=== PATIENT | male | born 1955 | race Caucasian/White ===

== ENCOUNTER → 2023-04-08 10:28 | Outpatient (CLI) | payer MEDICARE, OTHER, SELFPAY ==
--- NOTE | 2023-04-08 10:30 | DI.RAD.S_ITS ---
PROCEDURE: XR LUMBAR SPINE MIN 4V INDICATIONS: LOW BACK PAIN TECHNIQUE: 5 views of the lumbar spine were acquired, including bilateral oblique views. COMPARISON: None. FINDINGS: Bones: 5 nonrib-bearing vertebrae are present. Minimal levocurvature of the lumbar spine. Grade 1 retrolisthesis of L2 on L3 and L3 on L4. There is 9 millimeters of anterolisthesis of L4 on L5. There is multilevel facet arthropathy, worse at L4-5 and L5-S1. Mild multilevel disc height loss with degenerative endplate changes and spurring is present. This is most pronounced at L4-5. No vertebral body compression fractures. No suspicious bony lesions. Soft tissues: Overlying bowel gas pattern is normal. No suspicious soft tissue calcifications. Atherosclerotic vascular calcifications. Oblique images: No definite pars defects. IMPRESSION: Multilevel degenerative changes of the lumbar spine with spondylolisthesis as described above. No definite pars interarticularis defects are seen radiographically. Dictated by: Daljit Saleem M.D. on 04/08/2023 at 11:54 Approved by: Daljit Saleem M.D. on 04/08/2023 at 11:56
== END ==
PROVIDERS: PCP Nurse Practitioner Family; Referring Provider Anesthesiology; Visit Provider Anesthesiology
DX: M54.50 Low back pain, unspecified (principal); M43.16 Spondylolisthesis, lumbar region; M47.816 Spondylosis without myelopathy or radiculopathy, lumbar region; M48.062 Spinal stenosis, lumbar region with neurogenic claudication; M54.16 Radiculopathy, lumbar region; Z68.28 Body mass index [BMI] 28.0-28.9, adult
CPT/HCPCS: 72110; 99214

== ENCOUNTER → 2023-04-13 09:09 | Outpatient (CLI) | payer MEDICARE, OTHER, SELFPAY ==
--- NOTE | 2023-04-13 09:10 | DI.MRI.S_ITS ---
PROCEDURE: MR LUMBAR SPINE WO CON INDICATIONS: Radiculopathy, lumbar spine stenosis TECHNIQUE: Noncontrast sagittal T1 spin echo and T2 fast echo, sagittal STIR, and T2 fast spin echo through the lumbar spine. In cases with scoliosis, additional coronal T2 fast spin echo may be performed. COMPARISON: None. FINDINGS: Image quality: Excellent. Alignment and Curvature: There is normal bony alignment. Bone Marrow: Marrow is of normal overall signal. No acute vertebral body compression fractures. Spinal Cord: Conus medullaris terminates at the L1 level. Visualized cord demonstrates normal signal and size. Paraspinous Soft Tissues: No paravertebral masses. T12-L1: No significant disc bulge. The foramina and central canal are patent. L1-L2: Left paracentral disc protrusion and annular tear. The foramina and central canal are patent. L2-L3: The disc is desiccated. There is a diffuse disc bulge. Central annular tear. Moderate bilateral foraminal stenosis. Mild central canal stenosis. L3-L4: The disc is desiccated. There is bilateral facet arthropathy. Moderate bilateral foraminal stenosis. Mild central canal stenosis. L4-L5: The disc is desiccated with a diffuse disc bulge. Severe bilateral facet arthropathy. Severe central canal stenosis. Grade 1 anterolisthesis of L4-5 likely due to facet arthropathy. L5-S1: Diffuse disc bulge and left-sided facet arthropathy. Mild right and moderate left foraminal stenosis. The central canal is patent. IMPRESSION: 1. Multilevel lumbar spondylosis causing foraminal and central canal stenosis as detailed above. 2. Severe central canal stenosis at L4-5. 3. Mild central canal stenosis at L2-3 and L3-4. Dictated by: Jeff Hernandez M.D. on 04/13/2023 at 10:05 Approved by: Jeff Hernandez M.D. on 04/13/2023 at 11:02
== END ==
PROVIDERS: PCP Nurse Practitioner Family; Referring Provider Anesthesiology; Visit Provider Anesthesiology
DX: M48.062 Spinal stenosis, lumbar region with neurogenic claudication; M47.26 Other spondylosis with radiculopathy, lumbar region; M43.16 Spondylolisthesis, lumbar region
CPT/HCPCS: 72148

== ENCOUNTER 2023-05-20 10:22 | Outpatient (CLI) | payer MEDICARE, OTHER, SELFPAY ==
[2023-05-20] VITALS (7 sets, daily range): BP systolic 125–155; BP diastolic 63–74; PULSE 48–54; RESP 9–19; TEMP 36.3; O2SAT 98–99
--- NOTE | 2023-05-20 11:00 | DI.RAD.S_ITS ---
PROCEDURE: PAIN L INTERLAMINAR/CAUDAL INJ INDICATIONS: Radiculopathy COMPARISON: None. FINDINGS: Fluoroscopic spot filming was performed to verify placement of spinal needles at the L4-5 level(s), as labeled on the films. Appropriate location(s) of the needle tip(s) was confirmed by injection of iodinated contrast. IMPRESSION: Intraoperative fluoroscopy for L4-5 epidural steroid injection. Dictated by: Jovanna Callahan M.D. on 05/20/2023 at 14:09 Approved by: Jovanna Callahan M.D. on 05/20/2023 at 14:09
[2023-05-20] MEDS: DEXAMETHASONE 10 MG/ML VIAL INJ (11:19)
[2023-05-20] MEDS: iopamidoL 15 ML VIAL 3 ML INJ (11:19)
--- NOTE | 2023-05-20 11:33 | P.PCN_ITS ---
Date/Time/Diagnoses Date of procedure: 05/20/23 Time of procedure: 11:00 Procedure Notes Physician: Sin Moon Total Fluoroscopy time (seconds): 21 Total sedation minutes: 0 Procedure in detail & Post-procedure care: L4-5 Interlaminar Epidural Steroid Injection Indications: Lamont is presenting for treatment of lumbar radiculopathy with low back and leg pain. Preoperative diagnosis: Lumbar radiculopathy Postoperative diagnosis: Same Focused Examination: Ax3 Mood and affect are normal Vital Signs: VSS Consent: Following review of allergies and potential side effects/complications, including, but not necessarily limited to, infection, allergic reaction, local tissue breakdown, stroke, temporary or permanent nerve injury, paralysis, and possible , the patient indicated that they understood and agreed to proceed.? An informed consent document was signed by the patient, witnessed by a nurse and placed in the patient's chart.? Additionally, other treatment options including medications and physical therapy were reviewed with the patient. All questions were answered. Site was then marked. Anesthesia: Local Position: Prone Monitoring: NIBP, Pulse oximetry, 3 lead EKG Needle used: 18 G 3.5? Tuohy Contrast: Isovue 300M Injectate: Dexamethasone 10 mg with 1% lidocaine 2 mL Technique: The skin was prepped with chloraprep and then draped in a sterile fashion. Time out was performed as per protocol. Oxygen applied via NC. Skin and subcutaneous structures of the needle entry site was then infiltrated with 3 mL of lidocaine 1%. Under AP, lateral and contralateral oblique fluoroscopic control, the Tuohy needle was guided into the L4-5 epidural space. The space was accessed with loss of resistance technique. Isovue 300M was then injected and the spread was consistent with the epidural space. There was no evidence for intravascular or intrathecal uptake. After negative aspiration, the above- mentioned injectate was then slowly administered and the needle withdrawn. The patient expressed no unusual discomfort or paresthesias during the injection. Band-Aids applied to injection sites. EBL: less than 1 ml Complications: None Post Procedure: Patient was taken to the recovery and monitored. The patient was provided a Pain Log to continue to record the patient's response to the target- specific procedure prior to the patient's follow-up visit with the referring physician. Patient was stable upon discharge. Detailed post procedure instructions were provided. Patient was asked to call in the event of worsening pain, fever, weakness, numbness or bladder or bowel incontinence.
== END 2023-05-20 11:37 | disposition home or self-care (01) ==
LOC: RAD 10:22
PROVIDERS: PCP Nurse Practitioner Family; Referring Provider Anesthesiology; Visit Provider Anesthesiology
DX: M54.16 Radiculopathy, lumbar region (principal)
CPT/HCPCS: 62323; J1100

== ENCOUNTER 2023-07-15 09:44 | Outpatient (CLI) | payer MEDICARE, OTHER, SELFPAY ==
--- NOTE | 2023-07-15 | DI.RAD.S_ITS ---
PROCEDURE: PAIN L/S TRANSFORAMINAL INJECT INDICATIONS: LEFT L4-5 TRANSFORAMINAL THEO COMPARISON: None. FINDINGS: Fluoroscopic spot filming was performed to verify placement of spinal needles at the left L5 level(s), as labeled on the films. Appropriate location(s) of the needle tip(s) was confirmed by injection of iodinated contrast. IMPRESSION: Fluoroscopic guidance utilized for an epidural steroid injection. Dictated by: Stevenson Izaguirre M.D. on 07/15/2023 at 12:36 Approved by: Stevenson Izaguirre M.D. on 07/15/2023 at 12:37
[2023-07-15 10:00] VITALS: BP 144/69; PULSE 54; RESP 16; TEMP 36.4; O2SAT 97
[2023-07-15 10:50] VITALS: BP 163/76; PULSE 53; RESP 22; O2SAT 98
[2023-07-15] MEDS: DEXAMETHASONE 10 MG/ML VIAL INJ (10:50)
[2023-07-15] MEDS: iopamidoL 15 ML VIAL 3 ML INJ (10:52)
[2023-07-15 10:55] VITALS: BP 139/68; PULSE 53; RESP 14; O2SAT 97
[2023-07-15 10:59] VITALS: BP 144/74; PULSE 53; RESP 12; O2SAT 98
[2023-07-15 11:05] VITALS: BP 141/73; PULSE 53; RESP 16; O2SAT 98
--- NOTE | 2023-07-15 11:50 | P.PCN_ITS ---
Date/Time/Diagnoses Date of procedure: 07/15/23 Time of procedure: 10:30 Procedure Notes Physician: Sin Moon Total Fluoroscopy time (seconds): 19 Total sedation minutes: 0 Procedure in detail & Post-procedure care: Left L4-5 Transforaminal Epidural Steroid Injection Indications: Lamont is presenting for treatment of lumbar radiculopathy with low back and leg pain. Preoperative diagnosis: Lumbar radiculopathy Postoperative diagnosis: Same Focused Examination: Ax3 Mood and affect are normal Vital Signs: VSS Consent: Following review of allergies and potential side effects/complications, including, but not necessarily limited to, infection, allergic reaction, local tissue breakdown, stroke, temporary or permanent nerve injury, paralysis, and possible , the patient indicated that they understood and agreed to proceed .? An informed consent document was signed by the patient, witnessed by a nurse and placed in the patient's chart.? Additionally, other treatment options including medications and physical therapy were reviewed with the patient. All questions were answered. Site was then marked. Anesthesia: Local Position: Prone Monitoring: NIBP, Pulse oximetry, 3 lead EKG Needle used: 22G, 3.5 inch spinal needle Contrast: Isovue 300M Injectate: 10 mg Dexamethasone mixed with 1% lidocaine 1 ml and normal saline 1 mL Technique: The skin was prepped with chloraprep and draped in a sterile fashion. Time out was performed as per protocol. Oxygen applied via NC. Skin and subcutaneous structures of the needle entry site were infiltrated with 3mL of lidocaine 1%. Under fluoroscopic guidance, using an ipsilateral oblique view,?a 22 gauge 3.5 inch needle was advanced to the base of the left L4?pedicle.? The needle was advanced to the superio-posterior aspect of the neural foramen under lateral view.? Oblique and AP views were rechecked. No paresthesias noted by the patient during needle placement. In AP view and utilizing real-time digital subtraction fluoroscopy, 2 ml contrast was slowly injected. Epidural spread was observed without evidence for intravascular nor intrathecal uptake. Contrast spread was seen craniocaudally. The above injectate was then administered without paresthesias and the needle was subsequently withdrawn. Band-Aids applied to injection sites. EBL: less than 1 ml Complications: None Post Procedure: Patient was taken to the recovery and monitored. The patient was provided a Pain Log to continue to record the patient's response to the target- specific procedure prior to the patient's follow-up visit with the referring physician. Patient was stable upon discharge. Detailed post procedure instructions were provided. Patient was asked to call in the event of worsening pain, fever, weakness, numbness or bladder or bowel incontinence.
== END 2023-07-15 10:12 | disposition home or self-care (01) ==
LOC: RAD 09:45
PROVIDERS: PCP Nurse Practitioner Family; Referring Provider Anesthesiology; Visit Provider Anesthesiology
DX: M54.16 Radiculopathy, lumbar region (principal)
CPT/HCPCS: 64483; J1100

== ENCOUNTER → 2023-10-19 09:43 | Outpatient (CLI) | payer MEDICARE, OTHER, SELFPAY ==
--- NOTE | 2023-10-23 02:07 | DI.NM.S_ITS ---
DATE OF SERVICE: 10/19/2023 PROCEDURE PERFORMED: Exercise treadmill stress and rest myocardial perfusion imaging with gating to assess ejection fraction and regional wall motion. ORDERING PROVIDER: ISAAC Simon INDICATIONS: The patient is a 68-year-old male with a previous inferior infarction and stenting, now with exertional dyspnea. CARDIAC STRESS: The patient was able to exercise for 3 minutes and 52 seconds on a standard Josemanuel protocol suggesting moderate-severely reduced exercise capacity with an LEXA of +39%, achieving 7.0 METs. He had a normal heart rate response to exercise, achieving a maximum heart rate of 149 BPM (99% of his predicted maximum). He had a mild hypertensive blood pressure response with a resting blood pressure of 122/84, increasing to a maximum of 210/90. He had no chest discomfort or other anginal symptoms with stress. His resting ECG showed sinus rhythm with normal ST segments. With stress, there are no significant ST-segment shifts or arrhythmias. At 3 minutes of exercise at a heart rate of 138 BPM, 24.9 millicuries of technetium-99m Myoview was injected and he was imaged 15 minutes later using a gated SPECT acquisition protocol. Four days earlier while at rest, he had been injected with 26.0 millicuries of technetium-99m Myoview, was imaged 15 minutes later, again using a gated SPECT acquisition protocol. FINDINGS: 1. Raw data. There is fair myocardial tracer uptake. The lung/heart ratio is normal at 0.40 with a normal TID ratio of 0.91. 2. Quantitated gated SPECT: Post-stress ejection fraction is estimated at 65% with subtle hypokinesis in the proximal to mid inferior wall but no other focal wall motion abnormality. The resting ejection fraction is 47% with a similar contraction pattern although with slightly reduced global contractility. The resting end-diastolic volume borderline increased at 124 mL. 3. Myocardial perfusion imaging: The post-stress supine images show a [id number] perfusion defect in the proximal to mid inferior wall and improves but does not completely resolve on the prone images. The resting images show a similar perfusion pattern without any significant improvement. IMPRESSION: 1. Probable abnormal myocardial perfusion study. 2. Subtle, fixed proximal to mid inferior perfusion defect that improves, but does not completely resolve on the prone images, consistent with probable previous nontransmural proximal to mid inferior wall infarction but without significant ischemia. Some degree of diaphragmatic attenuation cannot be excluded. 3. Preserved left ventricular systolic function with mild hypokinesis in the proximal to mid inferior wall, but no other focal wall motion abnormality. Left ventricular volumes are at the upper limits of normal. 4. Moderate-severely reduced exercise capacity without angina or ECG evidence of ischemia. He had a mild hypertensive blood pressure response to exercise. SyedLamont - BERNIE/lance/ninoksa doc#: [id number]/job#: [id number] dd: 10/22/2023 16:34:00 dt: 10/23/2023 02:01:00 DICTATING /COPIES TO: David Goetz MD; ISAAC Simon COPIES MNE: URIEL;
== END ==
LOC: NUCM 09:44
PROVIDERS: PCP Nurse Practitioner Family; Referring Provider Nurse Practitioner; Visit Provider Nurse Practitioner
DX: I25.10 Atherosclerotic heart disease of native coronary artery without angina pectoris (principal); R06.09 Other forms of dyspnea; R94.39 Abnormal result of other cardiovascular function study; I10 Essential (primary) hypertension
CPT/HCPCS: 78452; 93017; A9502